=== PATIENT | female | born 1990 | race Caucasian/White ===

== ENCOUNTER 2017-01-30 11:05 | Outpatient (CLI) | payer BC ==
[2017-02-04] MEDS ORDERED: COLACE-DPS100 MG PO (14:40)
[2017-02-04] MEDS ORDERED: PRENATAL VIT1 TAB PO (14:40)
[2017-02-04] MEDS ORDERED: TYLENOL EXTRA500 M1 PO (14:41)
[2017-02-04] MEDS ORDERED: MOTRIN-DPS800 MG PO (14:41)
[2017-02-04] MEDS ORDERED: NIPPLECREAM TP (14:41)
== END 2017-01-30 12:40 | disposition home or self-care (01) ==
LOC: BC 11:05 → 2LDRP 11:05 → BC 12:40
DX: O46.93 Antepartum hemorrhage, unspecified, third trimester (principal); Z3A.39 39 weeks gestation of pregnancy

== ENCOUNTER 2017-02-01 01:43 | Inpatient (IN) | payer BC ==
[~2017-02-01] VITALS: Ht 167.6 cm; Wt 83.5 kg
--- NOTE | ~2017-02-01 | FD ---
ADMIT: 02/01/2017 RM/LOC: 220 [facility] MR#: [id number] 2620 [facility] [address] [place] [id number] IN[place] [address] [place] [address] Final Diagnosis SEX: F AGE: 26 : 1990 ADMISSION DATE: 02/01/2017 DISCHARGE DATE: 02/03/2017 FINAL DIAGNOSIS: A 27-year-old 1 para 1-0-0-1, status post spontaneous vaginal delivery at 40 weeks 0 days. PROCEDURE: 1. Spontaneous vaginal delivery. 2. Epidural catheter placement and removal. Dipika Ospina MD Resident / Linda Carcamo MD / hussain JOB #: [id number] CC: Linda Carcamo MD, Attending Physician Linda Carcamo MD, Family Physician
[2017-02-04] MEDS ORDERED: PRENATAL VIT1 TAB PO (14:40)
[2017-02-04] MEDS ORDERED: COLACE-DPS100 MG PO (14:40)
[2017-02-04] MEDS ORDERED: NIPPLECREAM TP (14:41)
[2017-02-04] MEDS ORDERED: TYLENOL EXTRA500 M1 PO (14:41)
[2017-02-04] MEDS ORDERED: MOTRIN-DPS800 MG PO (14:41)
--- NOTE | 2017-03-01 07:46 | HP ---
ADMIT: 02/01/2017 RM/LOC: 220 [facility] MR#: [id number] [facility]#: [id number] 2620 [facility] [address] [place] [phone] KELSEY CHACON [address] [place] [address] History and Physical SEX: F AGE: 26 : 1990 Corrected: 02/02/20172032 [facility] DATE OF SERVICE: 02/01/2017 CHIEF COMPLAINT: Contraction. HISTORY OF PRESENT ILLNESS: This is a 26-year-old, G1, P0 with intrauterine at 40 weeks 0 days via LMP and confirmed with first trimester ultrasound, who presents to the [facility] with regular contractions. At the time of presentation, the patient was found to have a cervical check of 5 cm. She progressed to 6 cm and was admitted for labor management. She had no leaking of fluid, vaginal bleeding, and reported normal movement. She denied headache, change in vision, chest pain, or shortness of breath. No nausea, vomiting, diarrhea, or constipation. PAST MEDICAL HISTORY: She has a history of eczema. Denies hypertension or asthma. PAST SURGICAL HISTORY: She denies surgical history. MEDICATIONS: vitamin, clotrimazole cream. ALLERGIES: SHE HAS AN ALLERGY TO CEPHALOSPORINS WELL PENICILLINS, FOR WHICH SHE GETS RASH AND PRURITUS. SOCIAL HISTORY: She is . Denies alcohol use, tobacco use, recreational drug use. FAMILY HISTORY: Family history of cervical cancer and hypertension in her mother. She has a maternal grandmother with Alzheimer's. REVIEW OF SYSTEMS: She denies headache, changes in vision, chest pain, or shortness of breath. No nausea, vomiting, diarrhea, or constipation. LABORATORY DATA: Blood type O positive. Direct antibody screen negative. HIV negative. Gonorrhea and chlamydia negative. RPR negative. Hepatitis B negative. Rubella immune. GBS negative. One-hour glucose tolerance test 113. CBC from admission pending. PHYSICAL EXAMINATION: VITAL SIGNS: Blood pressure 135/74, pulse 89, respiratory rate 16. She is afebrile. heart rate baseline 140. Positive accelerations. No decelerations. Moderate variability. Category 1 tracing. TOCO every 7 to 9 minutes and irregular. GENERAL: She is alert and oriented, in no acute distress. HEART: Regular rate and rhythm. LUNGS: Clear to auscultation bilaterally. ABDOMEN: Gravid with estimated weight of 3200 g. EXTREMITIES: She has trace edema in bilateral lower extremities. ADMIT: 02/01/2017 RM/LOC: 220 [facility] MR#: [id number] [address] [id number] KELSEY CHACON [address] [place] [address] History and Physical SEX: F AGE: 26 : 1990 ASSESSMENT AND PLAN: This is a 26-year-old, G1, P0 with intrauterine at 40 weeks 0 days via LMP with first trimester ultrasound here with regular contractions. 1. Admit for labor management. Consents obtained. Blood type O positive. 2. Group B streptococcus negative. No plan for antibiotic prophylaxis at this time. We will assess for signs and symptoms of infection. 3. heart tones, category 1. Reassuring. Continue to monitor. 4. Maternal well being. She is doing well at this time. Considering epidural in future. We will reassess as needed. 5. History of penicillin and cephalosporin allergy. We will use alternative medication should the patient need antibiotic prophylaxis prior to surgical intervention. The patient was seen by attending physician on the day of admission. Dipika Ospina MD Resident / Linda Carcamo MD / isai JOB #: [id number] CC: Linda Carcamo, Attending Physician Linda Carcamo, Family Physician Corrected: 02/02/20172032 [facility]
--- NOTE | 2017-03-01 07:51 | OR ---
ADMIT: 02/01/2017 RM/LOC: 220 [facility] MR#: [id number] 2620 [facility] [address] [place] [id number] INES KELSEY GOOD [address] [place] [id number] Operative/Delivery Room Report SEX: F AGE: 26 : 1990 SURGERY DATE: 02/01/2017 SURGEON: Linda Carcamo MD PROCEDURE: Spontaneous vaginal delivery. PRE-PROCEDURE DIAGNOSIS: A 26-year-old female, 1 para 0, with an intrauterine at 40 weeks 0 days. POSTPROCEDURE DIAGNOSES: 1. A 26-year-old 1 para 1-0-0-1, status post spontaneous vaginal delivery. 2. Second-degree perineal laceration, status post repair. ESTIMATED BLOOD LOSS: 250 mL. ANESTHESIA: Epidural. FINDINGS: Viable male infant with a weight of 3230 g, scores of 9, and 9, in straight OA presentation, normal placenta, three vessel cord. SPECIMENS REMOVED: Cord blood. COMPLICATIONS: None, the patient tolerated the procedure well. PROCEDURE AND HOSPITAL COURSE: This is a 26-year-old with intrauterine at 40 weeks 0 days, who presented to Labor and Delivery with regular contractions. The patient was admitted and with Pitocin augmentation as well as AROM, ultimately progressed to complete. The patient was complete and expulsive efforts were begun. The patient was placed in a dorsal lithotomy position, and prepped and draped in normal sterile fashion. The 's head was brought to the perineum with expulsive efforts. The 's head was delivered over intact perineum. The head was straight OA and restituted to the maternal right. There was no nuchal cord present. Anterior and posterior shoulder delivered without difficulty. The body followed. The infant was vigorous and crying and was placed on the maternal abdomen. This was a male , scores found to be 9 and 9, weight of 3230 g. After 1 minute of delayed cord clamping, the cord was clamped and cut. Cord blood was ADMIT: 02/01/2017 RM/LOC: 220 [facility] MR#: [id number] 2620 [facility] [address] [place] [id number] KELSEY CHACON [address] [place] [address] Operative/Delivery Room Report SEX: F AGE: 26 : 1990 collected, cord gas was not collected. Pitocin was administered per protocol. The placenta delivered spontaneously with a 3-vessel cord. Placenta anatomy was found to be normal. The vagina, perineum, and cervix were inspected for lacerations. The patient was noted to have a second-degree perineal laceration, which was repaired in normal fashion. At the completion of the procedure and repair, all tissues were found to be hemostatic. Estimated blood loss 250 mL. Counts were correct x2. The patient's epidural catheter tip was removed intact at the completion of the procedure. Mother and are stable in mother's room. Dr. Linda Carcamo was present for the above entire procedure. Dipika Ospina MD Resident / Linda Carcamo MD / modl JOB #: [id number] CC: Linda Carcamo, Attending Physician Linda Carcamo, Family Physician
== END 2017-02-03 12:45 | disposition home or self-care (01) | DRG 775 ==
LOC: BC 01:43 → 2LDRP 01:44
PROVIDERS: ADMIT Obstetrics & Gynecology
PROC: 0KQM0ZZ Repair Perineum Muscle, Open Approach (ICD-10-PCS; principal; 2017-02-01)
PROC: 10907ZC Drainage of Amniotic Fluid, Therapeutic from Products of Conception, Via Natural or Artificial Opening (ICD-10-PCS; principal; 2017-02-01)
PROC: 10E0XZZ Delivery of Products of Conception, External Approach (ICD-10-PCS; principal; 2017-02-01)
DX: O70.1 Second degree perineal laceration during delivery (principal); Z37.0 Single live birth; Z88.0 Allergy status to penicillin; Z3A.40 40 weeks gestation of pregnancy